=== PATIENT | male | born 1950 | race Caucasian/White ===

== ENCOUNTER 2016-07-06 13:53 | Emergency (ER) | payer MEDICARE ==
--- NOTE | ~2016-07-06 | CR72 ---
[facility] A Service of [facility] & [facility] RADIOLOGY TEXT RESULTS PATIENT: DREW MORALES JR LOCATION: SED : 52 UNIT #: [id number] AGE: [address]: Josue Miranda MD SEX: M ORDER DR: [id number] [place] [id number] E MR#: [id number] Acc #: [id number] NAME: DREW MORALES JR : 1950 SEX: M STUDY DATE/TIME: 07/06/2016 15:02 UNIT: SED ROOM: STUDY DESCRIPTION: CR Chest Single View Portable Attending Physician: Josue Miranda M.D. Ordering Physician: Josue Miranda M.D. Primary Care Physician: Krystle Coyne M.D. MEDICAL IMAGING REPORT This report is preliminary unless electronic signature is present. EXAM Chest, single view, portable. INDICATION Shortness of air for 1 day. History of pulmonary embolus. TECHNIQUE AP radiographs of the chest compared to 04/18/2015. FINDINGS Heart and mediastinal contour is within normal limits. No new airspace opacity. No pleural effusion. IMPRESSION No acute cardiopulmonary findings or significant interval change. Dictated by... Troy Andrew M.D. THIS IS AN ELECTRONICALLY VERIFIED REPORT Troy Andrew M.D. at 07/07/2016 8:02 AM ANDI/jeff TD: 07/06/2016 19:21 JOB #: [id number] MEDICAL IMAGING REPORT
--- NOTE | ~2016-07-06 | EKG ---
PATIENT: DREW MORALES UNIT #: [id number] Ventricular Rate: 72 BPM Atrial Rate: 72 BPM P-R Interval: 148 ms QRS Duration: 120 ms Q-T Interval: 408 ms QTC Calculation(Bezet): 446 ms P [place]: 49 degrees Calculated R [place]: 78 degrees Calculated T [place]: 26 degrees Diagnosis Line: Normal sinus rhythm Diagnosis Line: Incomplete left bundle branch block Diagnosis Line: Borderline ECG Diagnosis Line: When compared with ECG of 18-APR-2015 16:51, Diagnosis Line: No significant change was found Diagnosis Line: Confirmed by YADIRA PARKER MD ([id number]) on 07/08/2016 Diagnosis Line: 12:54:46 PM INTERPRETING MD: KEITH ELIAS
[~2016-07-06 13:53] MED LIST: ACETAMINOPHEN325 MG PO; ALBUTEROL0.63 MG/3 IH; ALBUTEROL17 GM INH; ALLEGRA; ALPRAZOLAM PO; ALPRAZOLAM0.5 MG PO; AMLODIPINE BESYL5 MG PO; APRESOLINE PO; ASPIRIN325 M1 PO; ASPIRIN81 M1 PO; ATARAX; ATENOLOL; ATIVAN PO; BACLOFEN10 MG PO; BACTRIM DS TABL1 TA1 PO; BENADRYL25 M1 PO; BENZONATATE PO; CARVEDILOL12.5 MG PO; CARVEDILOL25 MG PO; CARVEDILOL6.25 MG PO; CATAPRES-TTS-10.1 M1 PO; CATAPRES-TTS-10.1 MG PO; CATAPRES-TTS-20.2 MG PO; CATAPRES0.1 MG PO; CIPRO PO; CLARITIN10 M3 PO; CLEOCIN150 M1 PO; CLINDAMYCIN GEL 1%; CLONIDINE; CLONIDINE HCL0.1 MG PO; CLONIDINE PO; COMBIVENT INH14.7 GM; COREG; COREG12.5 MG PO; COREG6.25 MG PO; COUMADIN PO; COUMADIN1 MG PO; COUMADIN10 MG PO; COUMADIN4 MG PO; COUMADIN5 MG PO; COUMADIN6 MG PO; COUMADIN7.5 MG PO; DIABETA1.25 MG PO; DOXYCYCLINE150 MG PO; ENOXAPARIN100 MG/1 M SQ; EPINEPHRIN0.3 MG/0.1 IM; EPIPEN JR0.15 MG/01 IJ; FAMOTIDINE PO; FLONASE 0.05% N16 G1; GAS-X80 MG PO; GLUCOPHAGE500 M1 PO; GLUCOPHAGE500 MG PO; GLUCOTROL; GLYBURIDE1.25 MG PO; GLYBURIDE2.5 M1 PO; GLYNASE PO; HEARTBURN RELIE75 M2 PO; HEARTBURN150 MG PO; HYCODAN60 ML 5MG/ PO; HYDRALAZINE HC100 MG PO; HYDRALAZINE HCL25 MG PO; HYDRALAZINE HCL50 MG PO; HYDROCODON-ACE1 EAC5 PO; HYDROXYZINE HCL25 M1 PO; KLONOPIN0.5 MG PO; LEVOTHROID50 MCG PO; LEVOTHYROXINE50 MC1 PO; LEVOTHYROXINE50 MCG PO; LISINOPRIL; LISINOPRIL2.5 MG PO; LISINOPRIL20 MG PO; LOVENOX40 MG/0.4 INJ; METFORMIN; METFORMIN HCL500 M1 PO; MICRONASE1.25 MG PO; MUCINEX100 MG/5 M PO; MULTI VITAMIN1 EACH PO; NON-ASPIRIN EX500 M2 PO; OMEPRAZOLE20 M2 PO; OMEPRAZOLE40 M1 PO; PRAVACHOL; PREDNISONE PO; PREDNISONE10 MG/DOSE PO; PROSCAR5 MG PO; PROTONIX PO; ROBITUSSIN100 MG/51 PO; SUPER B COMPLEX1 CAP PO; SYMMETREL100 M1 PO; SYNTHROID PO; VIBRAMYCIN100 M1 PO; VOLTAREN50 MG PO; ZANTAC; ZANTAC150 MG PO; ZITHROMAX PO; ZITHROMAX1 G/PKT PO; ZOVIRAX800 MG PO; [UNRECOGNIZED DRUG - REMARK]
[2016-07-06 14:28] LABS: BASOPHIL# 0.1 X10e3 (0-0.3); BASOPHIL% 1.3 % (0-2.5); EOSINOPHIL# 0.2 X10e3 (0-0.7); EOSINOPHIL% 2.7 % (0.0-7.0); HEMATOCRIT 36.6 % (38.0-50.0); HEMOGLOBIN 12.3 gm/dL (13.0-16.0); LYMPHOCYTE# 1.2 X10e3 (1.0-3.5); LYMPHOCYTE% 18.6 % (17.0-45.0); MEAN CELL VOLUME 84.6 FL (83-96); MEAN CORPUSCULAR HEMOGLOBIN 28.5 PG (28-34); MEAN CORPUSCULAR HGB CONC 33.6 g/dL (30-36); MEAN PLATELET VOLUME 7.4 FL (6.5-11.5); MONOCYTE# 0.3 X10e3 (0-1.0); MONOCYTE% 5.3 % (3.0-12.0); NEUTROPHIL# 4.6 X10e3 (1.5-7.1); NEUTROPHIL% 72.1 % (40-75); PLATELET COUNT 213 X10e3 (140-420); RED BLOOD COUNT 4.33 X10e (3.90-5.60); WHITE BLOOD COUNT 6.4 X10e3 (4.0-10.5)
[2016-07-06 14:33] LABS: POC - CKMB 2.2 ng/mL (0.0-7.9); POC - TROPONIN <0.05 ng/mL (<=0.05)
[2016-07-06 14:41] LABS: INR 1.7; PROTHROMBIN TIME (PATIENT) 19.2 SECONDS (9.5-12.4)
[2016-07-06 14:52] LABS: PARTIAL THROMBOPLASTIN TIME 31.9 SECONDS (25.6-38.1)
[2016-07-06 14:53] LABS: DIFF IND NO
[2016-07-06 14:58] LABS: ALBUMIN SERUM 4.2 g/dL (3.5-5.0); ALKALINE PHOSPHATASE 37 U/L (32-92); ALT (SGPT) 23 U/L (10-40); AST (SGOT) 24 U/L (10-42); BILIRUBIN, DIRECT 0.2 mg/dL (0.0-0.2); BILIRUBIN,INDIRECT 0.3 mg/dL (0.0-0.9); BILIRUBIN,TOTAL 0.5 mg/dL (0.2-2.0); BLOOD UREA NITROGEN 14 mg/dL (9-23); CALCIUM SERUM 8.2 mg/dL (8.4-10.2); CARBON DIOXIDE 24 mmol/L (22-31); CHLORIDE 97 mmol/L (100-111); GLOM FILT RATE Estimated ABOVE60 mL/min (>60); GLUCOSE FASTING 217 mg/dL (70-110); MAGNESIUM 1.8 mg/dL (1.6-3.0); POTASSIUM 3.7 mmol/L (3.5-5.1); PROTEIN TOTAL SERUM 6.3 g/dL (6.0-8.3); SODIUM 128 mmol/L (135-145)
[2016-07-06 15:55] LABS: POC - CKMB 1.9 ng/mL (0.0-7.9); POC - MYOGLOBIN 86.9 ng/mL (0.0-169.0); POC - TROPONIN <0.05 ng/mL (<=0.05)
[2017-01-12] MEDS ORDERED: CLONIDINE (14:58)
[2017-01-12] MEDS ORDERED: COREG (14:58)
[2017-01-12] MEDS ORDERED: PRINIVIL20 M1 PO (14:58)
[2017-01-12] MEDS ORDERED: METFORMIN HCL500 M1 (14:59)
[2017-01-12] MEDS ORDERED: SYNTHROID (15:00)
[2017-01-12] MEDS ORDERED: GLYBURIDE (15:00)
[2017-01-12] MEDS ORDERED: ALBUTEROL20 ml INH (15:01)
[2017-01-12] MEDS ORDERED: OMEPRAZOLE20 M1 PO (15:01)
[2017-01-12] MEDS ORDERED: CLARITIN10 M3 (15:01)
[2017-01-12] MEDS ORDERED: FLONASE ALLERG9.9 ML (15:02)
[2017-01-12] MEDS ORDERED: WARFARIN SODIUM3 MG (15:05)
== END 2016-07-06 17:29 | disposition home or self-care (01) ==
LOC: SED 13:53
PROVIDERS: Emergency Medicine
DX: S29.011A Strain of muscle and tendon of front wall of thorax, initial encounter (principal); M94.0 Chondrocostal junction syndrome [Tietze]; E78.5 Hyperlipidemia, unspecified; I10 Essential (primary) hypertension; J44.9 Chronic obstructive pulmonary disease, unspecified; Z87.891 Personal history of nicotine dependence; X58.XXXA Exposure to other specified factors, initial encounter; Y92.9 Unspecified place or not applicable
CPT/HCPCS: 36415; 71010; 80048; 80076; 82553; 83735; 83874; 83880; 84484; 85025; 85610; 85730; 93005; 96361; 96372; 96374; 96375; 99284; J1650; J2270; J2405

== ENCOUNTER 2016-08-03 01:27 | Emergency (ER) | payer MEDICARE ==
--- NOTE | ~2016-08-03 | CT71 ---
[facility] A Service of [facility] RADIOLOGY TEXT RESULTS PATIENT: DREW MORALES LOCATION: SED : 52 UNIT #: [id number] AGE: [address]: Carol Sharma MD SEX: M ORDER DR: [id number] [place] [id number] E MR#: [id number] Acc #: [id number] NAME: DREW MORALES : 1950 SEX: M STUDY DATE/TIME: 08/03/2016 1:09 UNIT: SED ROOM: STUDY DESCRIPTION: CT Head Wo Contrast Attending Physician: Carol Sharma M.D. Ordering Physician: Physician Non-Staff Primary Care Physician: Krystle Coyne M.D. MEDICAL IMAGING REPORT This report is preliminary unless electronic signature is present. EXAM CT head, noncontrast, 08/03/2016 HISTORY 66-year-old male in the ED after head injury tonight. Struck back of head on bookcase. Posterior head pain. TECHNIQUE CT examination of the head was performed without IV contrast. This CT exam was performed with one or more of the following radiation dose reduction techniques: Automatic exposure control, adjustment of mA and/or kV according to patient size, and iterative reconstruction. FINDINGS No acute intracranial abnormality is identified, and there is no visible skull fracture. No evidence of intracranial hemorrhage, mass, mass effect, cerebral edema or hydrocephalus. No significant change since 05/16/2016. IMPRESSION 1. No acute intracranial abnormality or skull fracture. 2. No change since 05/16/2016. 1. Dictated by... Brannon Dawson M.D. THIS IS AN ELECTRONICALLY VERIFIED REPORT Brannon Dawson M.D. at 08/03/2016 9:43 PM RGW/jonathan TD: 08/03/2016 12:25 [facility] A Service [facility] RADIOLOGY TEXT RESULTS PATIENT: DREW MORALES LOCATION: SED : 52 UNIT #: [id number] AGE: [address]: Carol Sharma MD SEX: M ORDER DR: JOB #: [id number] MEDICAL IMAGING REPORT Page 1 of 1
[2017-01-12] MEDS ORDERED: CLONIDINE (14:58)
[2017-01-12] MEDS ORDERED: COREG (14:58)
[2017-01-12] MEDS ORDERED: PRINIVIL20 M1 PO (14:58)
[2017-01-12] MEDS ORDERED: METFORMIN HCL500 M1 (14:59)
[2017-01-12] MEDS ORDERED: GLYBURIDE (15:00)
[2017-01-12] MEDS ORDERED: SYNTHROID (15:00)
[2017-01-12] MEDS ORDERED: CLARITIN10 M3 (15:01)
[2017-01-12] MEDS ORDERED: ALBUTEROL20 ml INH (15:01)
[2017-01-12] MEDS ORDERED: OMEPRAZOLE20 M1 PO (15:01)
[2017-01-12] MEDS ORDERED: FLONASE ALLERG9.9 ML (15:02)
[2017-01-12] MEDS ORDERED: WARFARIN SODIUM3 MG (15:05)
== END 2016-08-03 02:21 | disposition home or self-care (01) ==
LOC: SED 01:27
DX: S09.90XA Unspecified injury of head, initial encounter (principal); W22.8XXA Striking against or struck by other objects, initial encounter; Y92.009 Unspecified place in unspecified non-institutional (private) residence as the place of occurrence of the external cause
CPT/HCPCS: 70450; 99284

== ENCOUNTER 2016-08-15 05:34 | Emergency (ER) | payer MEDICARE ==
[2016-08-15 05:46] LABS: INFLUENZA A NEG (NEG); INFLUENZA B NEG (NEG)
[2017-01-12] MEDS ORDERED: PRINIVIL20 M1 PO (14:58)
[2017-01-12] MEDS ORDERED: CLONIDINE (14:58)
[2017-01-12] MEDS ORDERED: COREG (14:58)
[2017-01-12] MEDS ORDERED: METFORMIN HCL500 M1 (14:59)
[2017-01-12] MEDS ORDERED: GLYBURIDE (15:00)
[2017-01-12] MEDS ORDERED: SYNTHROID (15:00)
[2017-01-12] MEDS ORDERED: OMEPRAZOLE20 M1 PO (15:01)
[2017-01-12] MEDS ORDERED: ALBUTEROL20 ml INH (15:01)
[2017-01-12] MEDS ORDERED: CLARITIN10 M3 (15:01)
[2017-01-12] MEDS ORDERED: FLONASE ALLERG9.9 ML (15:02)
[2017-01-12] MEDS ORDERED: WARFARIN SODIUM3 MG (15:05)
== END 2016-08-15 07:00 | disposition home or self-care (01) ==
LOC: SED 05:34
DX: J40 Bronchitis, not specified as acute or chronic (principal); K21.9 Gastro-esophageal reflux disease without esophagitis; Z88.0 Allergy status to penicillin; Z88.8 Allergy status to other drugs, medicaments and biological substances; Z79.899 Other long term (current) drug therapy; I10 Essential (primary) hypertension
CPT/HCPCS: 87651; 87804; 99283

== ENCOUNTER 2016-09-11 16:26 | Emergency (ER) | payer MEDICARE ==
--- NOTE | ~2016-09-11 | CT71 ---
[facility] A Service of [facility] RADIOLOGY TEXT RESULTS PATIENT: DREW MORALES LOCATION: [place] : 54 UNIT #: [id number] AGE: [address]: Chris Lyons MD SEX: M ORDER DR: [id number] [facility] [address] [place], [place] [address] [id number] E MR#: [id number] Acc #: [id number] NAME: DREW MORALES : 1950 SEX: M STUDY DATE/TIME: 09/11/2016 15:29 UNIT: [place] ROOM: STUDY DESCRIPTION: CT Head Wo Contrast Attending Physician: Chris Lyons M.D. Ordering Physician: Chris Lyons M.D. Primary Care Physician: Krystle Coyne M.D. MEDICAL IMAGING REPORT This report is preliminary unless electronic signature is present EXAM CT brain without contrast. HISTORY Posterior headache after hit in head with basketball today. TECHNIQUE This CT exam was performed with one or more of the following radiation dose reduction techniques: automatic exposure control, adjustment of mA and/or kV according to patient size, and iterative reconstruction. FINDINGS Axial noncontrast images were obtained from the skull base to the vertex. Ventricular size and configuration are normal. There is no evidence of acute infarct or hemorrhage. There are no extra-axial fluid collections. No mass lesion or mass effect is seen. There are no skull fractures. IMPRESSION Normal noncontrast head CT. Dictated by... Armond Avina M.D. THIS IS AN ELECTRONICALLY VERIFIED REPORT Armond Avina M.D. at 09/12/2016 10:55 PM SUNG/nemo TD: 09/11/2016 16:46 JOB #: [id number] [facility] A Service of [facility] RADIOLOGY TEXT RESULTS PATIENT: DREW MORALES LOCATION: [place] : 52 UNIT #: [id number] AGE: [address]: Chris Lyons MD SEX: M ORDER DR: MEDICAL IMAGING REPORT Page 1 of 1 COPY
[2017-01-12] MEDS ORDERED: CLONIDINE (14:58)
[2017-01-12] MEDS ORDERED: COREG (14:58)
[2017-01-12] MEDS ORDERED: PRINIVIL20 M1 PO (14:58)
[2017-01-12] MEDS ORDERED: METFORMIN HCL500 M1 (14:59)
[2017-01-12] MEDS ORDERED: SYNTHROID (15:00)
[2017-01-12] MEDS ORDERED: GLYBURIDE (15:00)
[2017-01-12] MEDS ORDERED: OMEPRAZOLE20 M1 PO (15:01)
[2017-01-12] MEDS ORDERED: CLARITIN10 M3 (15:01)
[2017-01-12] MEDS ORDERED: ALBUTEROL20 ml INH (15:01)
[2017-01-12] MEDS ORDERED: FLONASE ALLERG9.9 ML (15:02)
[2017-01-12] MEDS ORDERED: WARFARIN SODIUM3 MG (15:05)
== END 2016-09-11 16:30 | disposition home or self-care (01) ==
LOC: CED 16:26
DX: S06.0X1D Concussion with loss of consciousness of 30 minutes or less, subsequent encounter (principal); S00.03XA Contusion of scalp, initial encounter; E11.9 Type 2 diabetes mellitus without complications; K21.9 Gastro-esophageal reflux disease without esophagitis; J45.909 Unspecified asthma, uncomplicated; Z88.1 Allergy status to other antibiotic agents; Z88.8 Allergy status to other drugs, medicaments and biological substances; W21.05XA Struck by basketball, initial encounter; Y92.410 Unspecified street and highway as the place of occurrence of the external cause
CPT/HCPCS: 70450; 99284

== ENCOUNTER 2016-10-14 01:14 | Emergency (ER) | payer MEDICARE ==
--- NOTE | ~2016-10-14 | CT4 ---
[facility] A Service of [facility] RADIOLOGY TEXT RESULTS PATIENT: DREW MORALES LOCATION: [facility] : 54 UNIT #: [id number] AGE: [address]: Kole Shepherd SEX: M ORDER DR: [id number] [facility] [address] [place], [place] [address] [id number] E MR#: [id number] Acc #: [id number] NAME: DREW MORALES : 1950 SEX: M STUDY DATE/TIME: 10/14/2016 6:16 UNIT: [facility] ROOM: STUDY DESCRIPTION: CT Abd and Pelv Wo Cont Attending Physician: Kole Shepherd P.A.-C. Ordering Physician: Kole Shepherd P.A.-C. Primary Care Physician: Krystle Coyne M.D. MEDICAL IMAGING REPORT This report is preliminary unless electronic signature is present EXAM CT of the abdomen and pelvis, 10/14 HISTORY Diarrhea since Tuesday morning of this week. Left side abdominal pain. History of kidney stones. TECHNIQUE Axial noncontrast images were obtained through the abdomen and pelvis. Multiplanar reformats were obtained. This CT exam was performed with one or more of the following radiation dose reduction techniques: automatic exposure control, adjustment of mA and/or kV according to patient size, and iterative reconstruction. COMPARISON 10/19/2014 FINDINGS ABDOMEN: The lung bases are clear except for granulomatous calcifications on the right. Gallbladder is normal. No renal or ureteral stones are seen. There is no hydronephrosis. There is hepatic steatosis. The unenhanced solid organs are otherwise normal. Large celiac trunk is again seen. The colon is fluid and gas filled consistent with a history of diarrhea. The unopacified GI tract is otherwise unremarkable. There is no free fluid. PELVIS: There are no lower ureteral stones. The bladder is normal. The colon is fluid and gas filled. Distal small bowel unremarkable. No free fluid. I believe the patient has a normal tiny appendix. There are bilateral L5 pars defects with stable grade 1 to 2 spondylolisthesis of L5 on S1. [facility] A Service of [facility] & [facility] RADIOLOGY TEXT RESULTS PATIENT: DREW MORALES LOCATION: [facility] : 54 UNIT #: [id number] AGE: [address]: Kole Shepherd PAC SEX: M ORDER DR: IMPRESSION 1. The colon is fluid and gas filled but otherwise normal. The findings are in keeping with given history of diarrhea. The GI tract is otherwise normal. 2. No renal or ureteral stones. No hydronephrosis. 3. Hepatic steatosis. 4. Stable bilateral L5 pars defects with grade 1 to 2 spondylolisthesis at L5-S1. Dictated by... Drew Martin Jr., M.D. THIS IS AN ELECTRONICALLY VERIFIED REPORT Drew Martin Jr., M.D. at 10/15/2016 6:06 AM VIV/alex TD: 10/14/2016 10:43 JOB #: [id number] MEDICAL IMAGING REPORT Page 1 of 1 COPY
[2016-10-14 03:31] LABS: BASOPHIL% 0.3 % (0-2.5); EOSINOPHIL# 0.1 X10e3 (0-0.7); EOSINOPHIL% 0.5 % (0.0-7.0); HEMATOCRIT 43.4 % (38.0-50.0); HEMOGLOBIN 14.3 gm/dL (13.0-16.0); LYMPHOCYTE% 7.8 % (17.0-45.0); MEAN CELL VOLUME 84.9 FL (83-96); MEAN CORPUSCULAR HEMOGLOBIN 27.9 PG (28-34); MEAN CORPUSCULAR HGB CONC 32.9 g/dL (30-36); MEAN PLATELET VOLUME 7.5 FL (6.5-11.5); MONOCYTE# 0.4 X10e3 (0-1.0); MONOCYTE% 3.2 % (3.0-12.0); NEUTROPHIL# 11.3 X10e3 (1.5-7.1); NEUTROPHIL% 88.2 % (40-75); PLATELET COUNT 273 X10e3 (140-420); RED BLOOD COUNT 5.11 X10e (3.90-5.60); WHITE BLOOD COUNT 12.8 X10e3 (4.0-10.5)
[2016-10-14 03:32] LABS: DIFF IND NO
[2016-10-14 03:54] LABS: INR 1.7; PARTIAL THROMBOPLASTIN TIME 33.1 SECONDS (23.5-31.3); PROTHROMBIN TIME (PATIENT) 18.7 SECONDS (9.6-11.5)
[2016-10-14 03:59] LABS: URINE SOURCE CLEAN CATCH
[2016-10-14 04:00] LABS: ALBUMIN SERUM 4.8 g/dL (3.5-5.0); BILIRUBIN, DIRECT 0.1 mg/dL (0.0-0.2); BILIRUBIN,INDIRECT 0.5 mg/dL (0.0-0.9); BILIRUBIN,TOTAL 0.6 mg/dL (0.2-2.0); BUN/CREATININE RATIO 10.83; CALCIUM SERUM 9.3 mg/dL (8.4-10.2); CREATININE SERUM 1.2 mg/dL (0.6-1.4); GLOM FILT RATE Estimated 63.5 mL/min (>60); POTASSIUM 4.4 mmol/L (3.5-5.1); PROTEIN TOTAL SERUM 8.1 g/dL (6.0-8.3)
[2016-10-14 04:05] LABS: URINE APPEARANCE CLEAR; URINE BILIRUBIN NEG (NEG); URINE BLOOD NEG (NEG); URINE COLOR DK YELLOW; URINE GLUCOSE NEG (NEG); URINE KETONE TRACE (NEG); URINE LEUKOCYTE ESTERASE NEG (NEG); URINE NITRATE NEG (NEG); URINE PH 5.5 (5-8); URINE PROTEIN 1+ (NEG); URINE SPECIFIC GRAVITY 1.025 (1.003-1.035)
[2016-10-14 04:07] LABS: URBCS1 AUWI 0-2 /[HPF] (0-2); URINE BACTERIA AUWI NEG (NEGATIVE); URINE SQUAMOUS EPITHELIAL CELL NONE SEEN /[HPF]; UWBCS1 AUWI 0-2 (0-5)
[2016-10-14 04:16] LABS: CULTURE INDICATED? NO
[2017-01-12] MEDS ORDERED: COREG (14:58)
[2017-01-12] MEDS ORDERED: CLONIDINE (14:58)
[2017-01-12] MEDS ORDERED: PRINIVIL20 M1 PO (14:58)
[2017-01-12] MEDS ORDERED: METFORMIN HCL500 M1 (14:59)
[2017-01-12] MEDS ORDERED: GLYBURIDE (15:00)
[2017-01-12] MEDS ORDERED: SYNTHROID (15:00)
[2017-01-12] MEDS ORDERED: CLARITIN10 M3 (15:01)
[2017-01-12] MEDS ORDERED: OMEPRAZOLE20 M1 PO (15:01)
[2017-01-12] MEDS ORDERED: ALBUTEROL20 ml INH (15:01)
[2017-01-12] MEDS ORDERED: FLONASE ALLERG9.9 ML (15:02)
[2017-01-12] MEDS ORDERED: WARFARIN SODIUM3 MG (15:05)
== END 2016-10-14 07:56 | disposition home or self-care (01) ==
LOC: CED 01:14
PROVIDERS: Physician Assistant
DX: R10.84 Generalized abdominal pain (principal); R19.7 Diarrhea, unspecified; E11.9 Type 2 diabetes mellitus without complications; I10 Essential (primary) hypertension; Z88.0 Allergy status to penicillin; Z88.8 Allergy status to other drugs, medicaments and biological substances
CPT/HCPCS: 36415; 74176; 80048; 80076; 81003; 82947; 83690; 85025; 85610; 85730; 96361; 96374; 99284; J2405

== ENCOUNTER → 2016-12-30 | Outpatient (CLI) | payer MEDICARE ==
[~2016-12-30] MED LIST changes: +ALBUTEROL20 ml INH; +CLARITIN10 M3; +FLONASE ALLERG9.9 ML; +GLYBURIDE; +HYDRALAZINE; +METFORMIN HCL500 M1; +OMEPRAZOLE20 M1 PO; +PRINIVIL20 M1 PO; +SYNTHROID; +WARFARIN SODIUM3 MG
--- NOTE | ~2016-12-30 | US6 ---
[facility] A Service of [facility] RADIOLOGY TEXT RESULTS PATIENT: DREW MORALES JR LOCATION: [facility] : 52 UNIT #: [id number] AGE: [address]: Anna Gastelum APRN SEX: M ORDER DR: [id number] [facility] [address] [place], [place] [address] [id number] O MR#: [id number] Acc #: [id number] NAME: DREW MORALES : 1950 SEX: M STUDY DATE/TIME: 12/30/2016 8:51 UNIT: [facility] ROOM: STUDY DESCRIPTION: US Abdominal Limited Attending Physician: Anna Gastelum A.P.R.N. Referring Physician: Anna Gastelum A.P.R.N. Ordering Physician: Anna Gastelum A.P.R.N. Primary Care Physician: Krystle Coyne M.D. MEDICAL IMAGING REPORT This report is preliminary unless electronic signature is present EXAM Right upper quadrant ultrasound 12/30/2016 HISTORY Right upper quadrant abdominal pain and nausea for 1 year. FINDINGS The liver demonstrates an increase in echotexture with attenuation of the ultrasound beam characteristic of fatty infiltration. No cystic or solid mass lesions were seen in the liver. The intra- and extrahepatic bile ducts are not dilated. The gallbladder is normal with no evidence of cholelithiasis, wall thickening, or pericholecystic fluid. The common duct measures 5 mm. The pancreas and right kidney are normal. IMPRESSION Fatty infiltration of the liver. Otherwise, negative right upper quadrant ultrasound. Dictated by... Harpreet Chung M.D. THIS IS AN ELECTRONICALLY VERIFIED REPORT Harpreet Chung M.D. at 12/31/2016 7:27 AM ANGELICA/ernie TD: 12/30/2016 13:45 JOB #: [id number] MEDICAL IMAGING REPORT Page 1 of 1 COPY
== END | disposition home or self-care (01) ==
LOC: CGUS 08:15
DX: R10.9 Unspecified abdominal pain (principal); K76.0 Fatty (change of) liver, not elsewhere classified
CPT/HCPCS: 76705

== ENCOUNTER 2017-01-08 01:52 | Emergency (ER) | payer MEDICARE ==
[~2017-01-08] VITALS: Ht 172.7 cm; Wt 107.0 kg
--- NOTE | ~2017-01-08 | EKG ---
PATIENT: DREW MORALES UNIT #: [id number] Ventricular Rate: 83 BPM Atrial Rate: 83 BPM P-R Interval: 186 ms QRS Duration: 116 ms Q-T Interval: 396 ms QTC Calculation(Bezet): 465 ms P [place]: 52 degrees Calculated R [place]: 78 degrees Calculated T [place]: -3 degrees Diagnosis Line: Sinus rhythm with Premature supraventricular Diagnosis Line: complexes Diagnosis Line: Incomplete left bundle branch block Diagnosis Line: ST abnormality, possible digitalis effect Diagnosis Line: Abnormal QRS-T angle, consider primary T wave Diagnosis Line: abnormality Diagnosis Line: Abnormal ECG Diagnosis Line: When compared with ECG of 06-JUL-2016 14:39, Diagnosis Line: Premature supraventricular complexes are now Diagnosis Line: Present Diagnosis Line: Confirmed by MARY KATE SIN MD ([id number]) on Diagnosis Line: 01/10/2017 1:50:18 PM INTERPRETING MD: JANUARY ELIAS
[~2017-01-08 01:52] MED LIST changes: -ALBUTEROL20 ml INH; -CLARITIN10 M3; -FLONASE ALLERG9.9 ML; -GLYBURIDE; -HYDRALAZINE; -METFORMIN HCL500 M1; -OMEPRAZOLE20 M1 PO; -PRINIVIL20 M1 PO; -SYNTHROID; -WARFARIN SODIUM3 MG
[2017-01-08] MEDS ORDERED: COUMADIN PO (02:01)
[2017-01-08] MEDS ORDERED: HYDRALAZINE (02:01)
[2017-01-08 02:48] LABS: BASOPHIL# 0.1 X10e3 (0-0.3); EOSINOPHIL# 0.2 X10e3 (0-0.7); EOSINOPHIL% 2.5 % (0.0-7.0); HEMATOCRIT 36.2 % (38.0-50.0); HEMOGLOBIN 12.5 gm/dL (13.0-16.0); LYMPHOCYTE# 2.6 X10e3 (1.0-3.5); LYMPHOCYTE% 30.3 % (17.0-45.0); MEAN CELL VOLUME 84.6 FL (83-96); MEAN CORPUSCULAR HEMOGLOBIN 29.2 PG (28-34); MEAN CORPUSCULAR HGB CONC 34.5 g/dL (30-36); MEAN PLATELET VOLUME 7.7 FL (6.5-11.5); MONOCYTE# 0.5 X10e3 (0-1.0); NEUTROPHIL# 5.1 X10e3 (1.5-7.1); NEUTROPHIL% 60.2 % (40-75); PLATELET COUNT 252 X10e3 (140-420); RED BLOOD COUNT 4.28 X10e (3.90-5.60); RED CELL DISTRIBUTION WIDTH 13.7 % (11.0-15.5); WHITE BLOOD COUNT 8.4 X10e3 (4.0-10.5)
[2017-01-08 02:49] LABS: DIFF IND NO
[2017-01-08 02:51] LABS: INR 2.5; PROTHROMBIN TIME (PATIENT) 28.6 SECONDS (9.5-12.4)
[2017-01-08 02:56] LABS: POC - CKMB 1.5 ng/mL (0.0-7.9)
[2017-01-08 02:57] LABS: POC - TROPONIN <0.05 ng/mL (<=0.05)
[2017-01-08 02:57] LABS: BUN/CREATININE RATIO 8.66; CALCIUM SERUM 8.5 mg/dL (8.4-10.2); CREATININE SERUM 1.5 mg/dL (0.6-1.4); GLOM FILT RATE Estimated 48.5 mL/min (>60); POTASSIUM 3.8 mmol/L (3.5-5.1)
[2017-01-08 02:58] LABS: PARTIAL THROMBOPLASTIN TIME 37.2 SECONDS (25.6-38.1)
[2017-01-08 03:14] LABS: URINE SOURCE CLEAN CATCH
[2017-01-08 03:16] LABS: URINE APPEARANCE CLEAR; URINE BILIRUBIN NEG (NEG); URINE BLOOD NEG (NEG); URINE COLOR YELLOW; URINE GLUCOSE NEG (NORM); URINE KETONE NEG (NEG); URINE LEUKOCYTE ESTERASE NEG (NEG); URINE NITRATE NEG (NEG); URINE PROTEIN NEG (NEG); URINE UROBILINOGEN 0.2 MG/DL (NORM)
[2017-01-08 03:22] LABS: MICRO INDICATED? NO
[2017-01-12] MEDS ORDERED: PRINIVIL20 M1 PO (14:58)
[2017-01-12] MEDS ORDERED: CLONIDINE (14:58)
[2017-01-12] MEDS ORDERED: COREG (14:58)
[2017-01-12] MEDS ORDERED: METFORMIN HCL500 M1 (14:59)
[2017-01-12] MEDS ORDERED: GLYBURIDE (15:00)
[2017-01-12] MEDS ORDERED: SYNTHROID (15:00)
[2017-01-12] MEDS ORDERED: ALBUTEROL20 ml INH (15:01)
[2017-01-12] MEDS ORDERED: OMEPRAZOLE20 M1 PO (15:01)
[2017-01-12] MEDS ORDERED: CLARITIN10 M3 (15:01)
[2017-01-12] MEDS ORDERED: FLONASE ALLERG9.9 ML (15:02)
[2017-01-12] MEDS ORDERED: WARFARIN SODIUM3 MG (15:05)
== END 2017-01-08 04:50 | disposition home or self-care (01) ==
LOC: SED 01:52
PROVIDERS: Emergency Medicine
DX: I10 Essential (primary) hypertension (principal); N28.9 Disorder of kidney and ureter, unspecified; E78.5 Hyperlipidemia, unspecified; J45.909 Unspecified asthma, uncomplicated; K21.9 Gastro-esophageal reflux disease without esophagitis; F41.9 Anxiety disorder, unspecified; Z86.718 Personal history of other venous thrombosis and embolism; Z86.711 Personal history of pulmonary embolism; Z79.01 Long term (current) use of anticoagulants; Z88.0 Allergy status to penicillin; Z88.1 Allergy status to other antibiotic agents; Z88.8 Allergy status to other drugs, medicaments and biological substances
CPT/HCPCS: 36415; 80048; 81003; 82553; 83874; 84484; 85025; 85610; 85730; 93005; 96361; 96374; 99283; J0360

== ENCOUNTER → 2017-01-21 | Day surgery (SDC) | payer MEDICARE ==
[~2017-01-21] MED LIST changes: +ALBUTEROL20 ml INH; +CLARITIN10 M3; +FLONASE ALLERG9.9 ML; +GLYBURIDE; +HYDRALAZINE; +METFORMIN HCL500 M1; +OMEPRAZOLE20 M1 PO; +PRINIVIL20 M1 PO; +SYNTHROID; +WARFARIN SODIUM3 MG
--- NOTE | ~2017-01-21 | OR ---
Unit #: [id number] #: [id number] Patient: DREW MORALES JR [id number] [address] [address] [id number] O MR#: [id number] NAME: DREW MORALES JR ROOM: Date of Procedure: 01/21/2017 Admission Date: 01/21/2017 Surgeon: Hiro Villatoro M.D. : 1950 Attending Physician: Hiro Villatoro M.D. Referring Physician: Hiro Villatoro M.D. Primary Care Physician: Krystle Coyne M.D. OPERATIVE REPORT PREOPERATIVE DIAGNOSES 1. Upper abdominal pain. 2. Reflux symptoms resistant to medications. 3. Dysphagia. 4. Blood in stools. POSTOPERATIVE DIAGNOSES 1. Upper abdominal pain. 2. Reflux symptoms resistant to medications. 3. Dysphagia. 4. Blood in stools. PROCEDURES PERFORMED 1. Esophagogastroduodenoscopy. 2. Biopsy of antrum for Helicobacter pylori testing. 3. Colonoscopy to cecum. ANESTHESIA Monitored anesthesia care. FINDINGS The patient was found to have mild gastritis on upper endoscopy as well as mild distal esophagitis. No stenosis or stricture were seen. On colonoscopy, the patient had normal colon except for mild internal and external hemorrhoids. SPECIMENS Sent to Pathology. COMPLICATIONS None apparent. CONDITION The patient tolerated the procedure well. INDICATIONS FOR PROCEDURE The patient is a 66-year-old white male, who presents at this time with left and right upper quadrant pain intermittently as well as reflux symptoms resistant to medications. He has had some intermittent dysphagia and intermittent bright red blood in his stool. He presents at this time for evaluation by upper and lower endoscopy. Unit #: [id number] #: [id number] Patient: DREW MORALES JR DESCRIPTION OF PROCEDURE After obtaining informed consent, the patient was brought to the endoscopy suite. After adequate monitored anesthesia care, had the endoscope placed through the mouth into the upper esophagus under direct vision. It was advanced to the second portion of the duodenum without difficulty with the lumen always in view. The duodenum was within normal limits as was the duodenal bulb. The pylorus opened normally. There was some mild distal gastritis present and a biopsy was obtained for Helicobacter pylori testing. On retroflexing back to the GE junction, the patient was found to have no abnormality seen in the proximal third, middle third, or incisura and no hiatal hernia was seen. On pulling back above the GE junction, there was some mild distal esophagitis present, but no stenosis, stricture, or neoplasm seen. The remaining portion of the esophagus was within normal limits. Laryngeal structures were grossly normal as viewed from above. At this point in time, the colonoscope was placed through the anus and slowly advanced to the level of cecum without difficulty with the lumen always in view. The cecum was normal as was the ileocecal valve. The ascending colon was normal as was the hepatic flexure, transverse colon, splenic flexure, descending colon, sigmoid colon, and rectum. No diverticula were seen. On retroflexing in the rectum to the anorectal junction, the patient was found to have some mild internal hemorrhoids. On pulling back through the anal canal on external inspection, the patient was found to have some mild external hemorrhoids. There was good sphincter tone. No masses palpable. The patient went from the endoscopy suite to the recovery area in stable condition. RECOMMENDATIONS Gastroesophageal reflux sheet given. High-fiber diet, lots of liquids, tucks or wipes p.r.n. Follow up as needed. Restart Coumadin today. Dictated by... Garry Alberto/philip TD: 01/22/2017 04:04 JOB #: [id number] CC: [facility]an Kamara M.D. . OPERATIVE REPORT Page 1 of 1 X Hiro Villatoro MD X PROCEDURE OPERATIVE NOTE
[2017-01-21 06:58] LABS: INR 1.4; PROTHROMBIN TIME (PATIENT) 14.8 SECONDS (10.0-11.7)
== END | disposition home or self-care (01) ==
LOC: COPS 05:46
PROVIDERS: Surgery
DX: K29.70 Gastritis, unspecified, without bleeding (principal); K21.0 Gastro-esophageal reflux disease with esophagitis; K64.8 Other hemorrhoids; K64.4 Residual hemorrhoidal skin tags; R19.5 Other fecal abnormalities; G89.29 Other chronic pain; R19.7 Diarrhea, unspecified; J45.909 Unspecified asthma, uncomplicated; I10 Essential (primary) hypertension; G47.33 Obstructive sleep apnea (adult) (pediatric); E03.9 Hypothyroidism, unspecified; E11.9 Type 2 diabetes mellitus without complications; Z87.442 Personal history of urinary calculi; Z88.0 Allergy status to penicillin; Z88.1 Allergy status to other antibiotic agents; Z91.018 Allergy to other foods; Z91.041 Radiographic dye allergy status; Z79.84 Long term (current) use of oral hypoglycemic drugs; Z79.899 Other long term (current) drug therapy; Z79.01 Long term (current) use of anticoagulants; Z98.1 Arthrodesis status; Z98.890 Other specified postprocedural states
CPT/HCPCS: 82947; 85610; 87077

== ENCOUNTER 2017-01-28 09:27 | Emergency (ER) | payer MEDICARE | END 2017-01-28 13:20 | disposition home or self-care (01) | LOC: SED 09:27 | DX: L29.9 Pruritus, unspecified (principal); T78.1XXA Other adverse food reactions, not elsewhere classified, initial encounter; Z79.01 Long term (current) use of anticoagulants; Z88.0 Allergy status to penicillin | CPT/HCPCS: 96374; 96375; 99283; J2930 ==